=== PATIENT | female | born 1965 | race African-American/Black ===

== ENCOUNTER 2021-11-23 14:44 | Inpatient (IN) | payer OTHER ==
[2021-11-23 17:00] VITALS: BMI 23.8
[2021-11-23] MEDS ORDERED: MAG HYDROX/AL HYDROX/SIMETH 30 ML UNIT-DOSE CUP PO PRN (18:04)
[2021-11-23] MEDS ORDERED: LOPERAMIDE HCL 2 MG CAPSULE PO PRN (18:04)
[2021-11-23] MEDS ORDERED: NICOTINE 10 MG CARTRIDGE (INHALER) IH PRN (18:04)
[2021-11-23] MEDS ORDERED: BENZOCAINE/MENTHOL (CHLORASEPTIC ) LOZENGE MM PRN (18:04)
[2021-11-23] MEDS ORDERED: MAGNESIUM CITRATE 300 ML BOTTLE PO PRN (18:04)
[2021-11-23] MEDS ORDERED: IBUPROFEN 400 MG TABLET (FP) PO PRN (18:04)
[2021-11-23] MEDS ORDERED: MAGNESIUM HYDROX 2400MG/30ML ORAL SUSPENSION 30 ML CUP PO PRN (18:04)
[2021-11-23] MEDS ORDERED: BISMUTH SUBSALICYLATE 524 MG/30 ML PO PRN (18:04)
[2021-11-23] MEDS ORDERED: ACETAMINOPHEN 325 MG TABLET (FP) PO PRN ×2 (18:04)
[2021-11-23] MEDS ORDERED: IBUPROFEN 600 MG TABLET (FP) PO PRN (18:04)
[2021-11-23] MEDS ORDERED: DICYCLOMINE HCL 10 MG CAPSULE PO PRN (18:04)
[2021-11-23] MEDS: PRENATAL VITAMINS W/ FOLIC ACID TABLET (FP) PO SCH (21:29)
[2021-11-23] MEDS: hydrOXYzine PAMOATE 25 MG CAPSULE (FP) PO SCH (22:31)
[2021-11-23] MEDS: MELATONIN 5 MG TABLETS PO SCH (22:31)
[2021-11-23] MEDS: METHOCARBAMOL 500 MG TABLET PO PRN (22:31)
[2021-11-23] MEDS: THIAMINE HCL 100 MG TABLET (FP) PO SCH (22:31)
[2021-11-24] MEDS: hydrOXYzine PAMOATE 25 MG CAPSULE (FP) PO SCH ×5 (06:38→22:41)
[2021-11-24] MEDS: METHOCARBAMOL 500 MG TABLET PO PRN ×2 (09:57→18:37)
[2021-11-24] MEDS: PRENATAL VITAMINS W/ FOLIC ACID TABLET (FP) PO SCH (09:57)
[2021-11-24] MEDS ORDERED: amLODIPine BESYLATE 5 MG TABLET (FP) PO SCH ×2 (10:00→11:27)
[2021-11-24 11:11] LABS: HEMATOCRIT 39.3 % (32.4-45.2); HEMOGLOBIN 13.1 GM/dL (10.7-15.3); MCH 28.9 pg (25.7-33.7); MCHC 33.4 g/dl (32.0-36.0); MEAN CELL VOLUME 86.4 fl (80-96); MEAN PLT VOLUME 8.2 fl (7.5-11.1); PLATELET COUNT 320 10^3/uL (134-434); RBC 4.55 M/mm3 (3.60-5.2); RDW 13.6 % (11.6-15.6); WHITE BLOOD COUNT 4.5 K/mm3 (4.0-10.0)
[2021-11-24] MEDS ORDERED: cloNIDine HCL 0.1 MG TABLET PO ONE (11:21)
[2021-11-24] MEDS ORDERED: BUPRENORPHINE HCL 150 MCG, BUPRENORPHINE HCL 75 MCG BC ONE (11:21)
[2021-11-24] MEDS ORDERED: BUPRENORPHINE HCL 150 MCG, BUPRENORPHINE HCL 75 MCG BC PRN (11:21)
[2021-11-24 11:29] LABS: BLOOD UREA NITROGEN 8.9 mg/dL (7-18); CALCIUM 9.5 mg/dL (8.5-10.1)
[2021-11-24 11:30] LABS: ALBUMIN 2.9 g/dl (3.4-5.0)
[2021-11-24 11:32] LABS: CREATININE 0.9 mg/dL (0.55-1.3)
[2021-11-24 11:34] LABS: BILIRUBIN,TOTAL 0.5 mg/dL (0.2-1); TOT PROT 6.2 g/dl (6.4-8.2)
[2021-11-24] MEDS: ONDANSETRON *ODT* 4 MG TABLET SL PRN (12:18)
[2021-11-24] MEDS: LISINOPRIL 10 MG TABLET PO SCH ×2 (12:19→22:41)
[2021-11-24] MEDS: diazePAM 5 MG TABLET PO PRN (18:37)
[2021-11-24] MEDS ORDERED: TRIMETHOBENZAMIDE HCL 200MG/2ML INJ IM ONE (19:11)
[2021-11-24] MEDS: cloNIDine HCL 0.1 MG TABLET PO PRN (19:32)
[2021-11-24] MEDS: THIAMINE HCL 100 MG TABLET (FP) PO SCH (22:41)
[2021-11-24] MEDS: MELATONIN 5 MG TABLETS PO SCH (22:41)
[2021-11-25] MEDS ORDERED: BUPRENORPHINE HCL 150 MCG, BUPRENORPHINE HCL 75 MCG BC PRN
[2021-11-25] MEDS: BUPRENORPHINE HCL 150 MCG, BUPRENORPHINE HCL 75 MCG BC SCH ×2 (05:23→18:49)
[2021-11-25] MEDS: hydrOXYzine PAMOATE 25 MG CAPSULE (FP) PO SCH ×5 (05:23→18:51)
[2021-11-25] MEDS: ONDANSETRON *ODT* 4 MG TABLET SL PRN (08:56)
[2021-11-25] MEDS: cloNIDine HCL 0.1 MG TABLET PO PRN (08:56)
[2021-11-25] MEDS: LISINOPRIL 10 MG TABLET PO SCH (09:38)
[2021-11-25] MEDS: PRENATAL VITAMINS W/ FOLIC ACID TABLET (FP) PO SCH (09:39)
[2021-11-25] MEDS: diazePAM 5 MG TABLET PO PRN ×2 (09:45→18:50)
[2021-11-25] MEDS ORDERED: amLODIPine BESYLATE 10 MG TABLET (FP) PO SCH (10:00)
[2021-11-25 17:37] VITALS: RESP 16
[2021-11-25] MEDS: METHOCARBAMOL 500 MG TABLET PO PRN (18:50)
[2021-11-25] MEDS ORDERED: methaDONE HCL 10 MG TABLET (FOR DETOX USE ONLY) PO ONE (20:31)
[2021-11-25] MEDS ORDERED: hydrOXYzine PAMOATE 25 MG CAPSULE (FP) PO PRN (20:32)
[2021-11-25 21:28] VITALS: BP 119/79; PULSE 82; TEMP 97.8
[2021-11-25] MEDS ORDERED: LISINOPRIL 20 MG TABLET PO ONE (22:00)
[2021-11-25] MEDS: THIAMINE HCL 100 MG TABLET (FP) PO SCH (23:51)
[2021-11-25] MEDS: MELATONIN 5 MG TABLETS PO SCH (23:51)
[2021-11-26] MEDS ORDERED: BUPRENORPHINE HCL 450 MCG FILM BC PRN
[2021-11-26] MEDS ORDERED: BUPRENORPHINE HCL 450 MCG FILM BC SCH (06:00)
[2021-11-26] MEDS ORDERED: LISINOPRIL 10 MG TABLET PO SCH (10:00)
[2021-11-27] MEDS ORDERED: BUPRENORPHINE/NALOXONE 4 MG/1 MG FILM PACKET SL SCH (06:00)
[2021-11-27] MEDS ORDERED: methaDONE HCL 10 MG TABLET (FOR DETOX USE ONLY) PO ONE (10:00)
[2021-11-28] MEDS ORDERED: BUPRENORPHINE/NALOXONE 8 MG/2 MG FILM PACKET SL ONE (06:00)
== END 2021-11-25 21:35 | disposition left against medical advice (07) | DRG 770 ==
LOC: YASAS 14:44 → Y6N 20:31 → UNDOADMIN 20:31
PROVIDERS: ADMIT Allergy & Immunology; ATTEND Family Medicine
PROC: HZ2ZZZZ Detoxification Services for Substance Abuse Treatment (ICD-10-PCS; principal; 2021-11-23)
DX: F11.23 Opioid dependence with withdrawal (principal); F17.210 Nicotine dependence, cigarettes, uncomplicated; I10 Essential (primary) hypertension
CPT/HCPCS: 36415; 80053; 85027; 86780; C9803-CS; J0735; Q0162; U0003; U0005